=== PATIENT | female | born 1945 | race Caucasian/White ===

== ENCOUNTER 2018-04-21 01:08 | Outpatient (CLI) | payer MEDICARE, BC, SELFPAY ==
[2018-04-21 08:46] LABS: ALT 47 U/L (12-78); AST 21 U/L (15-37); Albumin 3.9 g/dL (3.4-5.0); Alkaline Phosphatase 85 U/L (46-116); Anion Gap 8.7 mmol/L (3-11); BUN 20 mg/dL (7-18); Bilirubin, Total 0.3 mg/dL (0.2-1.0); CO2 29.3 mmol/L (21.0-32.0); CREATININE 0.88 mg/dL (0.55-1.02); Calcium 9.2 mg/dL (8.5-10.1); Chloride 102 mmol/L (98-107); Cholesterol 184 mg/dL (50-200); Glucose 104 mg/dL (70-100); HDL Cholesterol 74 mg/dL (40-60); LDL CHOLESTEROL 90 mg/dL (<100); Potassium 4.6 mmol/L (3.5-5.1); Sodium 140 mmol/L (136-145); Total Protein 7.3 g/dL (6.4-8.2); Triglyceride 67 mg/dL (30-150)
== END 2018-04-21 01:28 ==
PROVIDERS: PCP Nurse Practitioner; Visit Provider Nurse Practitioner
DX: E78.00 Pure hypercholesterolemia, unspecified (principal); I10 Essential (primary) hypertension
CPT/HCPCS: 36415; 80053; 80061; 83721

== ENCOUNTER 2019-02-03 08:56 | Outpatient (CLI) | payer MEDICARE, BC, SELFPAY ==
[2019-02-03 11:14] LABS: ALT 38 U/L (14-59); AST 20 U/L (15-37); Alkaline Phosphatase 78 U/L (46-116); Anion Gap 7.8 mmol/L (3-11); BUN 17 mg/dL (7-18); Bilirubin, Total 0.3 mg/dL (0.2-1.0); CO2 29.2 mmol/L (21.0-32.0); CREATININE 0.83 mg/dL (0.55-1.02); Calcium 9.3 mg/dL (8.5-10.1); Calculated LDL 96 mg/dL; Chloride 104 mmol/L (98-107); Cholesterol 184 mg/dL (<200); Glucose 108 mg/dL (74-106); HDL Cholesterol 76 mg/dL (40-60); Potassium 5.1 mmol/L (3.5-5.1); Sodium 141 mmol/L (136-145); Total Protein 7.2 g/dL (6.4-8.2); Triglyceride 62 mg/dL (<150)
== END 2019-02-03 09:16 ==
PROVIDERS: PCP Nurse Practitioner; Visit Provider Nurse Practitioner
DX: I10 Essential (primary) hypertension (principal); E78.5 Hyperlipidemia, unspecified
CPT/HCPCS: 80053; 80061

== ENCOUNTER 2019-03-09 01:29 | Outpatient (CLI) | payer MEDICARE, BC, SELFPAY ==
--- NOTE | 2019-03-09 10:37 | DI.MAMMO_ITS ---
EXAM: MG MAMMO SCREENING CLINICAL HISTORY: screening, Z12.39. TECHNIQUE: Bilateral full field digital CC and MLO mammographic images were obtained with 3D tomosyn thesis and utilizing computer aided detection (CAD). COMPARISON: Available for comparison. FINDINGS: Masses/Architectural Distortion: None seen. Microcalcifications: No suspicious pleomorphic-type are seen. Skin Thickening/Nipple Retraction: None. IMPRESSION: 1. No significant interval change with no specific features of malignancy noted. 2. Unless there is more urgent need, screening mammography is recommended, as per [employer] guidelines. ACR BI-RAD Category- 1 Negative Breast Density - Category B - Scattered areas of fibroglandular density A negative radiographic report should not delay biopsy if a dominant or clinically suspicious mass is present. Up to ten percent of cancers are not identified on mammography. A negative report may reinforce clinical impression. Adenosis and dense breasts may obscure an underlying neoplasm. False positive reports average 6 to 10%. Patient will receive a letter notifying them of these results.
== END 2019-03-09 01:49 ==
PROVIDERS: PCP Nurse Practitioner; Visit Provider Nurse Practitioner
DX: Z12.31 Encounter for screening mammogram for malignant neoplasm of breast (principal)
CPT/HCPCS: 77063; 77067

== ENCOUNTER 2020-03-21 02:35 | Outpatient (CLI) | payer MEDICARE, BC, SELFPAY ==
--- NOTE | 2020-03-21 06:45 | DI.MAMMO_ITS ---
EXAM: MAMMO SCREENING CLINICAL HISTORY: screening,Z12.39 TECHNIQUE: Mammograms were interpreted according to the usual protocol including computer analysis w [employer] CAD system, tomosynthesis and C-view imaging. COMPARISON: 2011 through 2019 FINDINGS: The breasts are composed of scattered fibroglandular densities, Breast Density category B. No suspicious masses or suspicious microcalcifications are seen. No skin thickening or abnormal axillary lymph nodes are seen. There has been no significant change from prior exams. IMPRESSION: BI-RADS Category 1, Negative mammogram Yearly screening mammography is recommended. Breast Density - Category B, scattered fibroglandular densities. A negative radiographic report should not delay biopsy if a dominant or clinically suspicious mass is present. Up to ten percent of cancers are not identified on mammography. A negative report may reinforce clinical impression. Adenosis and dense breasts may obscure an underlying neoplasm. False positive reports average 6 to 10%. Patient will receive a letter notifying them of these results.
== END 2020-03-21 02:55 ==
PROVIDERS: PCP Nurse Practitioner; Visit Provider Nurse Practitioner
DX: Z12.31 Encounter for screening mammogram for malignant neoplasm of breast (principal)
CPT/HCPCS: 77063; 77067

== ENCOUNTER 2021-05-02 01:27 | Outpatient (CLI) | payer MEDICARE, BC, SELFPAY ==
--- NOTE | 2021-05-02 10:51 | DI.MAMMO_ITS ---
Exam(s) MAMMO SCREENING EXAM: MAMMO SCREENING CLINICAL HISTORY: screening,Z12.39 TECHNIQUE: Mammograms were interpreted according to the usual protocol including computer analysis w [employer] CAD system, tomosynthesis and C-view imaging. COMPARISON: FINDINGS: The breasts are of moderate density with fairly symmetrical distribution of fibroglandular tissue. N o dominant mass or clumped microcalcification is identified in either breast. The current examinatio n is compared with previous examinations including February 2020 and there has been no gross interval change in appearance in comparison with the prior studies. IMPRESSION: No specific evidence of malignancy at this time. Routine screening examinations are suggested at yea rly intervals in this age group according to the ACS ACR guidelines. BI-RADS Category 1 - Negative Breast Density - Category B - Scattered areas of fibroglandular density
== END 2021-05-02 01:47 ==
PROVIDERS: PCP Nurse Practitioner; Visit Provider Nurse Practitioner
DX: Z12.31 Encounter for screening mammogram for malignant neoplasm of breast
CPT/HCPCS: 77063; 77067

== ENCOUNTER 2021-09-25 03:20 | Outpatient (CLI) | payer MEDICARE, BC, SELFPAY ==
[2021-09-25 07:44] LABS: HCT 38.8 % (36.0-46.0); MCH 30.8 pg (27.0-33.0); MCHC 33.5 % (32.0-36.0); MCV 92 fL (80-95); MPV 10.7 fL (8.0-11.0); Platelet Count 225 10^3/uL (130-400); RBC 4.22 10^6/uL (3.93-5.22); RDW 12.8 % (11.7-14.6); RDW-SD 43.3 fL
[2021-09-25 07:48] LABS: Hemoglobin A1C 5.9 % (<5.7)
[2021-09-25 08:11] LABS: ALT 33 U/L (14-59); AST 17 U/L (15-37); Albumin 3.8 g/dL (3.4-5.0); Alkaline Phosphatase 67 U/L (46-116); Anion Gap 5.7 mmol/L (3-11); BUN 18 mg/dL (7-18); Bilirubin, Total 0.4 mg/dL (0.2-1.0); CO2 28.3 mmol/L (21.0-32.0); Calcium 8.6 mg/dL (8.5-10.1); Calculated LDL 85 mg/dL (<100); Chloride 105 mmol/L (98-107); Cholesterol 175 mg/dL (<200); Glucose 107 mg/dL (74-106); HDL Cholesterol 80 mg/dL (40-60); Potassium 4.5 mmol/L (3.5-5.1); Sodium 139 mmol/L (136-145); Triglyceride 53 mg/dL (<150)
== END 2021-09-25 03:21 | disposition home or self-care (01) ==
LOC: LBO 03:21
PROVIDERS: PCP Nurse Practitioner; Visit Provider Nurse Practitioner
DX: E11.9 Type 2 diabetes mellitus without complications; E78.5 Hyperlipidemia, unspecified; I10 Essential (primary) hypertension
CPT/HCPCS: 36415; 80053; 80061; 85027; 83036

== ENCOUNTER 2022-05-07 01:18 | Outpatient (CLI) | payer MEDICARE, BC, SELFPAY ==
--- NOTE | 2022-05-07 07:00 | DI.MAMMO_ITS ---
Exam(s) MAMMO SCREENING EXAM: MAMMO SCREENING CLINICAL HISTORY: screening,z12.39 TECHNIQUE: Mammograms were interpreted according to the usual protocol including computer analysis w [email or web address] CAD system, tomosynthesis and C-view imaging. COMPARISON: 2015 through 2021 FINDINGS: The breasts are composed of scattered fibroglandular densities, Breast Density category B. No suspicious masses or suspicious microcalcifications are seen. No skin thickening or abnormal axillary lymph nodes are seen. There has been no significant change from prior exams. IMPRESSION: BI-RADS Category 1, Negative mammogram Yearly screening mammography is recommended. Breast Density - Category B, scattered fibroglandular densities. A negative radiographic report should not delay biopsy if a dominant or clinically suspicious mass is present. Up to ten percent of cancers are not identified on mammography. A negative report may reinforce clinical impression. Adenosis and dense breasts may obscure an underlying neoplasm. False positive reports average 6 to 10%. Patient will receive a letter notifying them of these results.
== END 2022-05-07 01:38 ==
LOC: DI 01:31
PROVIDERS: PCP Nurse Practitioner; Visit Provider Nurse Practitioner
DX: Z12.31 Encounter for screening mammogram for malignant neoplasm of breast (principal)
CPT/HCPCS: 77063; 77067

== ENCOUNTER 2023-02-06 02:01 | Outpatient (CLI) | payer MEDICARE, BC, SELFPAY ==
[2023-02-06 13:34] LABS: ALT 32 U/L (14-59); AST 18 U/L (15-37); Alkaline Phosphatase 78 U/L (46-116); Anion Gap 9.5 mmol/L (3-11); BUN 18 mg/dL (7-18); Bilirubin, Total 0.3 mg/dL (0.2-1.0); CO2 29.5 mmol/L (21.0-32.0); CREATININE 0.9 mg/dL (0.55-1.02); Calcium 9.4 mg/dL (8.5-10.1); Calculated LDL 90 mg/dL (<100); Chloride 101 mmol/L (98-107); Cholesterol 195 mg/dL (<200); Estimated GFR 66.67 (mL/min/1.73m2); Glucose 111 mg/dL (74-106); HDL Cholesterol 92 mg/dL (40-60); Potassium 4.3 mmol/L (3.5-5.1); Sodium 140 mmol/L (136-145); Total Protein 7.3 g/dL (6.4-8.2); Triglyceride 65 mg/dL (<150)
[2023-02-06 13:59] LABS: Hemoglobin A1C 5.7 % (<5.7)
== END 2023-02-06 02:02 | disposition home or self-care (01) ==
LOC: LBO 02:01
PROVIDERS: PCP Nurse Practitioner; Visit Provider Nurse Practitioner
DX: E78.5 Hyperlipidemia, unspecified (principal); I10 Essential (primary) hypertension; R73.03 Prediabetes
CPT/HCPCS: 36415; 80053; 80061; 83036

== ENCOUNTER → 2023-07-02 04:18 | Outpatient (CLI) | payer MEDICARE, BC, SELFPAY ==
--- NOTE | 2023-07-02 07:00 | DI.MAMMO_ITS ---
Exam(s) MAMMO SCREENING EXAM: MAMMO SCREENING 2015 through 2022 CLINICAL HISTORY: screening,z12.39 TECHNIQUE: Mammograms were interpreted according to the usual protocol including computer analysis w [employer] CAD system, tomosynthesis and C-view imaging. COMPARISON: No exams were available for comparison FINDINGS: The breasts are composed of scattered fibroglandular densities, Breast Density category B. No suspicious masses or suspicious microcalcifications are seen. No skin thickening or abnormal axillary lymph nodes are seen. There has been no significant change from prior exams. IMPRESSION: BI-RADS Category 1, Negative mammogram Yearly screening mammography is recommended. Breast Density - Category B, scattered fibroglandular densities. A negative radiographic report should not delay biopsy if a dominant or clinically suspicious mass is present. Up to ten percent of cancers are not identified on mammography. A negative report may reinforce clinical impression. Adenosis and dense breasts may obscure an underlying neoplasm. False positive reports average 6 to 10%. Patient will receive a letter notifying them of these results.
== END ==
PROVIDERS: PCP Nurse Practitioner; Visit Provider Nurse Practitioner
DX: Z12.31 Encounter for screening mammogram for malignant neoplasm of breast (principal)
CPT/HCPCS: 77063; 77067

== ENCOUNTER 2024-07-01 01:56 | Outpatient (CLI) | payer MEDICARE, BC, SELFPAY ==
[2024-07-01 08:19] LABS: Hemoglobin A1C 5.7 % (<5.7)
[2024-07-01 08:27] LABS: ALT 31 U/L (14-59); AST 22 U/L (15-37); Albumin 3.8 g/dL (3.4-5.0); Alkaline Phosphatase 80 U/L (46-116); Anion Gap 6.1 mmol/L (3-11); BUN 19 mg/dL (7-18); Bilirubin, Total 0.5 mg/dL (0.2-1.0); CO2 29.9 mmol/L (21.0-32.0); CREATININE 0.9 mg/dL (0.55-1.02); Calculated LDL 89 mg/dL (<100); Chloride 105 mmol/L (98-107); Cholesterol 187 mg/dL (<200); Estimated GFR 65.84 (mL/min/1.73m2); Glucose 112 mg/dL (74-106); HDL Cholesterol 86 mg/dL (>or=50); Potassium 5.1 mmol/L (3.5-5.1); Sodium 141 mmol/L (136-145); Total Protein 7.3 g/dL (6.4-8.2); Triglyceride 64 mg/dL (<150)
== END 2024-07-01 01:57 | disposition home or self-care (01) ==
LOC: LBO 01:56
PROVIDERS: PCP Nurse Practitioner; Referring Provider Nurse Practitioner; Visit Provider Nurse Practitioner
DX: R73.03 Prediabetes (principal); I10 Essential (primary) hypertension; E78.5 Hyperlipidemia, unspecified
CPT/HCPCS: 36415; 80053; 80061; 83036

== ENCOUNTER 2024-07-29 02:37 | Outpatient (CLI) | payer MEDICARE, BC, SELFPAY ==
--- NOTE | 2024-07-29 06:30 | DI.MAMMO_ITS ---
Exam(s) MAMMO SCREENING EXAM: MAMMO SCREENING CLINICAL HISTORY: screening,z12.39 TECHNIQUE: Bilateral full field digital CC and MLO mammographic images were obtained with 3D tomosyn thesis and utilizing computer aided detection (CAD). COMPARISON: Available for comparison. FINDINGS: Masses/Architectural Distortion: No suspicious masses or areas of architectural distortion are presen t. Microcalcifications: No suspicious pleomorphic-type are seen. Skin Thickening/Nipple Retraction: None. IMPRESSION: 1. No significant interval change with no specific features of malignancy noted. 2. Unless there is more urgent need, screening mammography is recommended, as per [employer] guidelines. BI-RADS Category 1 - Negative Breast Density - Category B - There are scattered areas of fibroglandular density. Breast density Category C or D implies that the patient has dense breast tissue. Dense breast tissue can make it harder to find cancer on a mammogram. Dense breast tissue is also associated with an incr eased risk of breast cancer. This information about the result of the mammogram report was provided to the patient to raise their awareness. Use this report when you speak with the patient about their risks for breast cancer, which includes their family history. At that time, you may recommend additional screening tests (Ultrasoun d or MRI) as these tests may add significant information. A negative radiographic report should not delay biopsy if a dominant or clinically suspicious mass is present. Up to ten percent of cancers are not identified on mammography. A negative report may reinforce clinical impression. Adenosis and dense breasts may obscure an underlying neoplasm. False positive reports average 6 to 10%. Patient will receive a letter notifying them of these results.
== END 2024-07-29 02:57 ==
LOC: DI 02:37
PROVIDERS: PCP Nurse Practitioner; Visit Provider Nurse Practitioner
DX: Z12.31 Encounter for screening mammogram for malignant neoplasm of breast (principal); R92.323 Mammographic fibroglandular density, bilateral breasts
CPT/HCPCS: 77063; 77067